=== PATIENT | female | born 1955 | race Caucasian/White ===

== ENCOUNTER 2022-10-20 10:55 | Emergency (ER) | payer MEDICARE, BC ==
[2022-10-20] MEDS ORDERED: Sodium Chloride 0.9% 1,000 ML IV SCH ×2 (11:45→13:30)
[2022-10-20] MEDS ORDERED: Sodium Chloride 0.9% 10 ML Syringe FLUSH PRN (11:45)
[2022-10-20 11:54] LABS: CORONAVIRUS COVID-19 NAA NEGATIVE (NEGATIVE)
== END 2022-10-20 14:50 | disposition home or self-care (01) ==
LOC: JD.ED 10:55
DX: R55 Syncope and collapse (principal); J10.1 Influenza due to other identified influenza virus with other respiratory manifestations; Z88.0 Allergy status to penicillin; Z88.8 Allergy status to other drugs, medicaments and biological substances; Z20.822 Contact with and (suspected) exposure to COVID-19
CPT/HCPCS: 0241U; 36415; 80053; 84484; 85025; 93005; 96360; 96361; 99284; J3490; J7030

== ENCOUNTER 2024-02-06 06:00 | Inpatient (IN) | payer MEDICARE, BC ==
[~2024-02-06 06:00] MED LIST: Sodium Chloride 0.9% 10 ML Syringe FLUSH PRN
[2024-02-06] MEDS ORDERED: Lactated Ringers 1,000 ML ONE (06:11)
[2024-02-06] MEDS ORDERED: ceFAZolin 2 GM Vial ONE (06:11)
[2024-02-06] MEDS ORDERED: Midazolam 1 MG/ML 2 ML SDV ONE (06:11)
[2024-02-06] MEDS ORDERED: Ondansetron 4 MG/2 ML SDV ONE (06:11)
[2024-02-06] MEDS ORDERED: Propofol 200 MG/20 ML SDV ONE (06:12)
[2024-02-06] MEDS: Lactated Ringers 1,000 ML IV SCH (06:15)
[2024-02-06] MEDS ORDERED: Ropivacaine 0.5% 5 MG/ML 30 ML SDV ONE (06:17)
[2024-02-06] MEDS ORDERED: dexmedeTOMIDine HCl 200 MCG/2 ML SDV ONE (06:17)
[2024-02-06] MEDS ORDERED: EPINEPHrine 1 MG/ML SDV ONE (06:17)
[2024-02-06] MEDS ORDERED: ePHEDrine 50 MG/ML SDV ONE (07:12)
[2024-02-06] MEDS ORDERED: Lidocaine 1% 4 ML ONE (07:42)
[2024-02-06] MEDS ORDERED: fentaNYL 100 MCG/2 ML SDV IVPUSH PRN (07:44)
[2024-02-06] MEDS ORDERED: HYDROmorphone 0.5 MG/0.5 ML Syringe IVPUSH PRN (07:44)
[2024-02-06] MEDS ORDERED: Ondansetron 4 MG/2 ML SDV IVPUSH PRN ×2 (07:44→11:47)
[2024-02-06] MEDS: Vancomycin 1 GM SDV ONE (07:52)
[2024-02-06] MEDS: Tranexamic Acid 1,000 MG/10 ML Vial ONE (07:52)
[2024-02-06] MEDS: Triamcinolone Acetonide 40 MG/ML 1 ML SDV ONE (07:52)
[2024-02-06] MEDS: Bupivacaine 0.25% 10 ML SDV ONE (07:52)
[2024-02-06] MEDS: Morphine 8 MG, EPINEPHrine 0.3 MG, Cefuroxime 750 MG, Ketorolac 30 MG, Sodium Chloride ... PRN (07:53)
[2024-02-06] MEDS ORDERED: Phenylephrine 1% 10 MG/ML SDV ONE (08:01)
[2024-02-06] MEDS ORDERED: oxyCODONE 5 MG Tab PO PRN ×2 (09:16→11:07)
[2024-02-06] MEDS ORDERED: Naloxone 0.4 MG/ML SDV IVPUSH PRN (11:47)
[2024-02-06] MEDS ORDERED: Cyclobenzaprine 10 MG Tab PO PRN (15:00)
[2024-02-06] MEDS: oxyCODONE 5 MG Tab PO PRN (21:45)
[2024-02-07] MEDS: Sodium Chloride 0.9% 10 ML Syringe FLUSH SCH (01:23)
[2024-02-07] MEDS ORDERED: Aspirin 325 MG Tab.EC PO SCH (09:00)
== END 2024-02-07 08:50 | disposition home or self-care (01) | DRG 470 ==
LOC: JD.SDS 06:00 → JD.ICU 11:36 → UNDOADMIN 11:36 → JD.ICU 11:52 → UNDODISIN 02-07 08:50
PROVIDERS: ADMIT Orthopaedic Surgery; ATTEND Orthopaedic Surgery
PROC: 8E0Y0CZ Robotic Assisted Procedure of Lower Extremity, Open Approach (ICD-10-PCS; 2024-02-06)
PROC: 3E0T3BZ Introduction of Anesthetic Agent into Peripheral Nerves and Plexi, Percutaneous Approach (ICD-10-PCS; 2024-02-06)
PROC: 0SRC06A Replacement of Right Knee Joint with Oxidized Zirconium on Polyethylene Synthetic Substitute, Uncemented, Open Approach (ICD-10-PCS; principal; 2024-02-06 07:30)
DX: M17.0 Bilateral primary osteoarthritis of knee (principal); I48.91 Unspecified atrial fibrillation; I10 Essential (primary) hypertension; K21.9 Gastro-esophageal reflux disease without esophagitis; I95.9 Hypotension, unspecified; I08.8 Other rheumatic multiple valve diseases; Z79.82 Long term (current) use of aspirin; Z90.49 Acquired absence of other specified parts of digestive tract; Z88.0 Allergy status to penicillin; Z88.8 Allergy status to other drugs, medicaments and biological substances; Z79.899 Other long term (current) drug therapy
CPT/HCPCS: 00142; 64447; 73560-26-RT; 73560-RT; 93005; 93010; 93307; 97110-GP; 97161-GP; 99222; 99231; A9270-GY; C1713; C1776; J0171; J0665; J0690; J0697; J1885; J2250; J2270; J2371; J2405; J2704; J2795; J3301; J3370; J3490; J7120

== ENCOUNTER 2025-04-08 07:08 | Emergency (ER) | payer MEDICARE, BC ==
[2025-04-08 07:50] LABS: BASOPHILS ABSOLUTE AUTO 0.0 K/mm3 (0.0-0.2); BASOPHILS PERCENT AUTO 0.6 % (0.0-1.0); EOSINOPHILS ABSOLUTE AUTO 0.2 K/mm3 (0.0-0.4); EOSINOPHILS PERCENT AUTO 3.5 % (0.0-6.0); IMMATURE GRAN ABSOLUTE AUTO 0.01 K/mm3 (0.00-0.05); IMMATURE GRAN PERCENT AUTO 0.2 % (0.0-0.4); LYMPHOCYTES ABSOLUTE AUTO 2.2 K/mm3 (1.0-4.8); LYMPHOCYTES PERCENT AUTO 44.6 % (24.0-44.0); MEAN PLATELET VOLUME 9.4 fl (9.4-12.3); MONOCYTES ABSOLUTE AUTO 0.5 K/mm3 (0.0-0.8); MONOCYTES PERCENT AUTO 9.8 % (0.0-8.0); NEUTROPHILS ABSOLUTE AUTO 2.0 K/mm3 (1.8-7.7); NEUTROPHILS PERCENT AUTO 41.3 % (41.0-71.0); NRBC ABSOLUTE 0.00 (0.00-0.02); NRBC PERCENT 0.0 % (0.0-0.2); PLATELET COUNT,PLT 181 K/mm3 (150-400); RED BLOOD CELL COUNT 5.03 M/mm3 (4.10-5.30); WHITE BLOOD CELL COUNT,WBC 4.82 K/mm3 (3.9-11.3)
[2025-04-08 07:54] LABS: A/G RATIO 1.0 (1-2); ALANINE AMINOTRANSFERASE,ALT 23.0 U/L (14-59); ASPARTATE AMNIOTRANSFERASE,AST 18.0 U/L (15-37); BILIRUBIN TOTAL 0.6 mg/dL (0.2-1.0); BLOOD UREA NITROGEN,BUN 17.0 mg/dL (7-18); CARBON DIOXIDE,CO2 28.0 mEq/L (21-32); CHLORIDE,CL 104.0 mEq/L (98-107); CREATININE 0.8 mg/dL (0.55-1.02); EST CRCL DRUG DOSING (CG) 56.5 mL/min; ESTIMATED GFR 79.0 mL/min (>60); GLUCOSE RANDOM 97.0 mg/dL (70-99); POTASSIUM,K 3.6 mEq/L (3.5-5.1); PROTEIN TOTAL,TP 7.1 g/dl (6.4-8.2); SODIUM,NA 140.0 mEq/L (136-145); TROPONIN I HIGH SENSITIVITY 12.0 pg/mL (<=51)
== END 2025-04-08 09:13 | disposition home or self-care (01) ==
LOC: JD.ED 07:08
DX: I48.91 Unspecified atrial fibrillation (principal); E86.9 Volume depletion, unspecified; I10 Essential (primary) hypertension; K21.9 Gastro-esophageal reflux disease without esophagitis; Z88.0 Allergy status to penicillin; Z88.8 Allergy status to other drugs, medicaments and biological substances; Z79.82 Long term (current) use of aspirin; Z79.899 Other long term (current) drug therapy
CPT/HCPCS: 36415; 80053; 83735; 84484; 85025; 93005; 96360; 99285; J7030; 93010; 99284